=== PATIENT | male | born 1985 | race Caucasian/White ===

== ENCOUNTER 2023-02-15 19:29 | Emergency (ER) | payer SELFPAY ==
[2023-02-15 21:30] LABS: #Eosinphils 0.2 10x3/uL (0.0-0.5); #Monocytes 0.6 10x3/uL (0.0-1.1); #Neutrophils 5.7 10x3/uL (1.5-8.4); %Basophils 0.4 % (0.0-2.0); %Eosinophils 2.3 % (0.0-6.0); %Lymphocytes 19.7 % (18.0-47.0); %Monocytes 7.2 % (0.0-10.0); %Neutrophils 70.2 % (40.0-75.0); Hematocrit 46.1 % (38.8-50.0); Hemoglobin 15.2 g/dL (13.5-17.5); Mean Corpuscular Hemoglobin 29.7 pg (27.0-33.0); Mean Corpuscular Volume 90.2 fl (81.2-95.1); Mean Platelet Volume 9.7 fl (7.4-10.4); Platelet Count 264 10x3/uL (150-450); Red Blood Cell (RBC) Count 5.11 10x6/uL (4.32-5.72); White Blood Cell (WBC) Count 8.2 10x3/uL (3.5-10.5)
[2023-02-15 21:43] LABS: ALT (SGPT) 18 U/L (8-55); AST (SGOT) 13 U/L (5-34); Albumin 4.3 g/dL (3.5-5.0); Alkaline Phosphatase 58 U/L (40-110); Anion Gap 16 mmol/L (10-20); BUN (Urea Nitrogen) 17 mg/dL (8.9-20.6); Bilirubin, Total 0.3 mg/dL (0.2-1.2); Calc. Creatinine Clearance 0 mL/min (70-130); Calcium 9.2 mg/dL (7.8-10.44); Carbon Dioxide 24 mmol/L (22-29); Chloride 105 mmol/L (98-107); Estimated GFR 104; Globulin 2.6 g/dL (2.4-3.5); Glucose 75 mg/dL (70-105); Magnesium 2.2 mg/dL (1.6-2.6); Potassium 4.6 mmol/L (3.5-5.1); Protein, Total 6.9 g/dL (6.0-8.3); Sodium 140 mmol/L (136-145)
[2023-02-15 21:50] LABS: Troponin I Less than 0.010 ng/mL (< 0.028)
[2023-02-15 21:55] LABS: D-Dimer Test Less than 0.19 mg/L FEU (0.19-0.50); INR-International Normal Ratio 0.9; PTT 31.1 sec (22.0-33.0); Prothrombin Time 9.8 sec (9.5-12.1)
[2023-02-15 22:27] LABS: SARS-CoV-2 NAA Rapid Test Not Detected (NotDetected)
[2023-02-15 23:27] LABS: Bilirubin Neg (Negative); Blood, Urine Negative (Negative); Clarity Clear (Clear); Glucose, Urine (Dipstick) Normal (Negative); Ketone, Urine Negative (Negative); Leukocyte Negative (Negative); Nitrite Negative (Negative); Protein, Urine (Dipstick) Negative (Neg-Trace); Specific Gravity, Urine 1.015 (1.005-1.030)
[2023-02-15] MEDS ORDERED: Lidocaine 4% Patch TD SCH (23:45)
[2023-02-15 23:48] LABS: Bacteria/HPF None Seen HPF (None Seen); CAUTI Indications for Culture Pelvic or flank pain; RBC/HPF None Seen HPF (0-3); Squamous Epithelial 0-3 HPF (0-3); WBC/HPF 0-3 HPF (0-3)
[2023-02-15 23:49] LABS: Urine Culture Reflex No No
[2023-02-15] MEDS ORDERED: Ketorolac Tromethamine 30 MG/ML VIAL ONE (23:52)
== END 2023-02-16 01:07 | disposition home or self-care (01) ==
LOC: CSHERS 19:29
DX: R07.81 Pleurodynia (principal); F17.220 Nicotine dependence, chewing tobacco, uncomplicated; I10 Essential (primary) hypertension; Z20.822 Contact with and (suspected) exposure to COVID-19
CPT/HCPCS: 71045; 80053; 81001; 83690; 83735; 83880; 84484; 85025; 85379; 85610; 85730; 93005; 96374; J1885

== ENCOUNTER 2024-03-07 07:52 | Emergency (ER) | payer OTHER, SELFPAY ==
[2024-03-07] MEDS ORDERED: cefTRIAXone (ROCEPHIN) 500 MG VIAL ONE (09:12)
[2024-03-07] MEDS ORDERED: Dexamethasone 10 MG/ML VIAL ONE (09:12)
[2024-03-07] MEDS ORDERED: Lidocaine 1% MPF 2 ML VIAL ONE (09:13)
== END 2024-03-07 09:30 | disposition home or self-care (01) ==
LOC: CSHERS 07:52
DX: J18.9 Pneumonia, unspecified organism (principal); I10 Essential (primary) hypertension; F17.210 Nicotine dependence, cigarettes, uncomplicated; F17.220 Nicotine dependence, chewing tobacco, uncomplicated
CPT/HCPCS: 71045; 96372; J0696; J1100

== ENCOUNTER 2025-01-26 18:22 | Emergency (ER) | payer OTHER, SELFPAY ==
[~2025-01-26 18:22] MED LIST: Iopamidol 300 61% 100 ML VIAL FS ONE
[2025-01-26 19:23] LABS: #Basophils Less than 0.03 10x3/uL (0.0-0.2); #Eosinophils 0.05 10x3/uL (0.0-0.5); #Monocytes 0.28 10x3/uL (0.0-1.1); #Neutrophils 6.84 10x3/uL (1.5-8.4); %Basophils 0.1 % (0.0-2.0); %Eosinophils 0.6 % (0.0-6.0); %Lymphocytes 6.7 % (18.0-47.0); %Monocytes 3.6 % (0.0-10.0); %Neutrophils 88.7 % (40.0-75.0); Hematocrit 47.6 % (38.8-50.0); Hemoglobin 15.7 g/dL (13.5-17.5); Mean Corpuscular Hemoglobin 28.6 pg (27.0-33.0); Mean Corpuscular Volume 86.7 fL (81.2-95.1); Platelet Count 191 10x3/uL (150-450); Red Blood Cell (RBC) Count 5.49 10x6/uL (4.32-5.72); White Blood Cell (WBC) Count 7.72 10x3/uL (3.5-10.5)
[2025-01-26 19:40] LABS: Glucose, Urine (Dipstick) Normal (Negative); Leukocyte Negative (Negative); Protein, Urine (Dipstick) 15 mg/dl (Neg-Trace); Specific Gravity, Urine 1.025 (1.005-1.030)
[2025-01-26] MEDS ORDERED: Ondansetron PF 4 MG/2 ML Vial ONE (19:40)
[2025-01-26 19:42] LABS: ALT (SGPT) 37 U/L (Less than 45); AST (SGOT) 22 U/L (11-34); Albumin 4.2 g/dL (3.1-4.5); Alkaline Phosphatase 48 U/L (40-110); Anion Gap 12 mmol/L (10-20); BUN (Urea Nitrogen) 19 mg/dL (8.9-20.6); Bilirubin, Total 0.8 mg/dL (0.3-1.2); Calc. Creatinine Clearance 0 mL/min (70-130); Calcium 8.5 mg/dL (7.8-10.44); Carbon Dioxide 22 mmol/L (22-29); Chloride 105 mmol/L (98-107); Globulin 2.7 g/dL (2.4-3.5); Glucose 107 mg/dL (70-105); Lipase 15 U/L (8-78); Potassium 3.7 mmol/L (3.5-5.1); Sodium 135 mmol/L (136-145)
[2025-01-26 20:02] LABS: Bacteria/HPF Rare-Few HPF (None Seen); CAUTI Indications for Culture Dysuria,urgency,freq; Mucous/LPF 2+ LPF (<2+); RBC/HPF None Seen HPF (0-3); Urine Culture Reflex No No; WBC/HPF None Seen HPF (0-3)
[2025-01-26] MEDS ORDERED: Acetaminophen 500 MG TAB ONE (20:05)
[2025-01-26] MEDS ORDERED: Dicyclomine 20 MG TAB ONE (20:05)
[2025-01-26] MEDS ORDERED: Ketorolac Tromethamine 30 MG (1 mL) VIAL ONE (20:34)
== END 2025-01-26 22:34 | disposition home or self-care (01) ==
LOC: CSHERS 18:22
DX: K52.9 Noninfective gastroenteritis and colitis, unspecified (principal); K56.609 Unspecified intestinal obstruction, unspecified as to partial versus complete obstruction; I10 Essential (primary) hypertension; F17.210 Nicotine dependence, cigarettes, uncomplicated; F17.220 Nicotine dependence, chewing tobacco, uncomplicated
CPT/HCPCS: 74177; 80053; 81001; 83690; 85025; 87428; 96361; 96374; 96375; J1885; J2405; Q9967